=== PATIENT | male | born 1985 | race Caucasian/White ===

== ENCOUNTER 2020-05-05 14:34 | Emergency (ER) | payer OTHER ==
[~2020-05-05] VITALS: Ht 182.9 cm; Wt 102.1 kg
[2020-05-05] MEDS ORDERED: PROZAC40 MG PO (15:01)
--- OUTSIDE RECORDS SUMMARY | 2020-05-05 16:38 | XMS ---
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 - Has Care Guidelines CARE PROVIDERS ANA MARIA VENEGAS Physician Camp Coordinator Current PHONE: [phone] Simon has no Care Guidelines for this patient. Care History Medical/Surgical 05/05/2019 [facility] CHW called and spoke to patient to follow up on recent ED visit. Patient states everything is going well and there are no questions, concerns, or resources needed at this time.\T\nbsp; E.D. VISIT COUNT (12 MO.) [facility] [address] TOTAL 3 NOTE: Visits indicate total known visits. ED/UCC VISIT TRACKING (12 MO.) 05/05/2020 14:35 [facility] TYPE: Emergency COMPLAINT: - CHEST PAIN, SOB 02/02/2020 13:55 [facility] TYPE: Emergency DIAGNOSES: 0. SOB CP FEVER DETOX 01/22/2020 10:45 [facility] [place] TYPE: Emergency DIAGNOSES: - Acute pericarditis, unspecified - SOB INPATIENT VISIT TRACKING (12 MO.) No inpatient visits to display in this time frame [email or web address]
[2020-05-05] MEDS ORDERED: NICOTINE PATCH1 EACH TD (17:03)
--- NOTE | 2020-05-06 06:57 | EKG ---
[facility] [address] [facility] [address] [place] [address] Signed Normal sinus rhythm Minimal voltage criteria for LVH, may be normal variant Borderline ECG No previous ECGs available Confirmed by BLACK MENON MD ([id number]) on 05/06/2020 6:56:46 AM Electronically Signed By: BLACK MENON MD 05/06/20 0657 PATIENT NAME: JIMMY COVARRUBIAS FELTON Electrocardiogram DATE OF : 87 PHYSICIAN: BLACK MENON MD REPORT #: [id number] REPORT IS CONFIDENTIAL AND NOT TO BE RELEASED WITHOUT AUTHORIZATION
== END 2020-05-05 17:18 | disposition home or self-care (01) ==
LOC: ED 14:34
DX: R07.9 Chest pain, unspecified (principal); F17.200 Nicotine dependence, unspecified, uncomplicated; Z79.899 Other long term (current) drug therapy
CPT/HCPCS: 71045; 80053; 83735; 83880; 84484; 85025; 85651; 93005; 93010; 96374; 99285-25; J2060